=== PATIENT | male | born 1930 | race Caucasian/White ===

== ENCOUNTER 2018-03-26 16:48 | Inpatient (IN) | payer OTHER, MEDICARE ==
[~2018-03-26] VITALS: Ht 177.8 cm; Wt 74.6 kg
--- NOTE | ~2018-03-26 | HC ---
[facility] [place] [address] CONSULTATION Name: JANUARY PATEL Room #: 510-P [facility] IN M.R.#: [id number] Admission: 03/26/18 Attend Phys: Rodriguez Crow MD Discharge: 04/05/18 Date of : [birth year]/19/[birth year] Report #: [id number] THIS REPORT FOR: //name// CC: Rodriguez Dalton DATE OF SERVICE: 03/28/2018 NEUROBEHAVIORAL STATUS EXAM: ATTENDING PHYSICIAN: Rodriguez Crow MD. PARKING LINE PAINTER: Issac Cerrato, PhD. CLINICAL PRESENTATION: The patient is an 87-year-old male admitted to the [facility] rehab unit for comprehensive inpatient rehabilitation program to improve functional mobility, activities of daily living and self-care secondary to deficits from medical complexity and general debility. He has an assessment that includes a recent gastrointestinal bleed with hemodynamic changes, lower extremity edema with congestive heart failure, coronary artery disease, dilation of the ascending aorta, hypertension, diverticulitis and diverticulosis, dyslipidemia, decreased balance and gait instability. A complete description of his medical condition and history can be found in his medical records. Neuropsychological consultation was requested to provide assistance in the assessment of cognitive and emotional status and to provide recommendations and services. Prior to this most recent admission, he reports that he was living independently in his own home with his . He reports himself as independent with instrumental activities of daily living. However, social history includes him needing his to assist him of getting up out of a chair and navigating steps. The patient had 4 children. One child, son was killed. 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 The patient indicates that he had received a scholarship to the [employer] for football, basketball and baseball and then chose baseball to pursue further professional interests. There is no reported history of a mood disorder. 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 However, he has been sober for approximately 4-5 years. TECHNIQUES UTILIZED: Clinical interview, review of medical records, staff consultation and behavioral observation, mini mental status exam 2 standard version, clock drawing and verbal fluency assessment (letter and category). EXAMINATION FINDINGS: The patient was alert and cooperative with the assessment. He accurately described events surrounding his admission. There is [address] [address] CONSULTATION Name: JANUARY PATEL Room #: 510-P [facility] IN M.R.#: [id number] Admission: 03/26/18 Attend Phys: Rodriguez Crow MD Discharge: 04/05/18 Date of : 12/19/[birth year] Report #: [id number] no evidence of aphasia. His thoughts are logical and goal oriented. There is no evidence of thought disorder. He does not report auditory or visual hallucinations. The patient lacks insight into the severity of cognitive deficits. His performance on the MMSE 2 brief version is extremely low with a raw score of 9 of 16. He was 3 of 3 for initial registration, 5 of 5 for orientation to time, 1 of [address] and 0 of 3 for immediate recall of 3 items after a brief time delay and distraction. Performance was extremely low on the MMSE 2 standard version with a raw score of 20, T score 20, percentile rank of less than 1. He was 3 of 5 for serial sevens, 2 of 2 for naming, 1 of 1 for repetition, 3 of 3 for auditory comprehension. He could read and follow a single command. He also was able to write a sentence. However, visual spatial construction and the ability to reproduce geometric design was impaired. The patient was unable to accurately set the hands of a clock at a designated time on clock drawing. Letter fluency was in the average range with a raw score 22 and a T score of 47, which is at the 38th percentile. Category fluency was in the borderline range with a T score of 36 and percentile rank of 8. Overall, total fluency was a T score of 32, which is at the fourth percentile. Deficits are noted in immediate/short term memory, orientation to place and visual spatial construction. Deficits in verbal fluency suggest executive dysfunction. DIAGNOSTIC IMPRESSION: Neurocognitive disorder, unspecified, without behavior disorder -- extent to be determined, likely in the moderate range. Unspecified anxiety disorder. RECOMMENDATIONS: The patient is likely to require increased supervision and structure to maintain safety. The use of a memory/orientation notebook may be of benefit to assist in compensation of memory deficits. Anxiety is in regard to his recovery and ability to return to prior lifestyle suggest counseling to assist with adjustment. The patient also indicates frustration with the physical limitations given his past history of athletic activity. Assistance with planning and problem solving along with family conference including his may be of benefit to clarify expectations and assist in problem solving. [address] [address] CONSULTATION Name: JORGEJANUARY ELSY Room #: 510-P [facility] IN M.R.#: [id number] Admission: 03/26/18 Attend Phys: Rodriguez Crow MD Discharge: 04/05/18 Date of : 12/19/[birth year] Report #: [id number] Thank you very much for allowing me to provide the consultation on this patient. <ELECTRONICALLY SIGNED> By: Issac Cerrato, PhD 04/05/18 1850 1421 0413 Issac Cerrato, PhD /nt
--- NOTE | ~2018-03-26 | PLAN ---
[facility] [place] [address] REHAB UNIT PLAN OF CARE Name: JANUARY PATEL Room #: 510-P ADM IN M.R.#: [id number] Admission: 03/26/18 Attend Phys: Rodriguez Crow MD Discharge: Date of : 12/19/30 Report #: [id number] THIS REPORT FOR: //name// CC: Rodriguez Dalton DATE OF SERVICE: 03/29/2018 PROGRESS NOTE/OVERALL PLAN OF CARE SUBJECTIVE: The patient is seen back today in followup. He is in no distress. Last recorded temperature 97.7, pulse 71, respirations 20, blood pressure 134/69. He is alert. Lower extremities reveal further decrease in his lower extremity edema. He is now trace to 1+. He has bilateral venous stasis changes. Transfers are min assist with gait 150 feet on four-wheeled walker. He has been needing min assist. He is min assist to go up and down stairs. In occupational therapy, lower body dressing has been mod assist. ASSESSMENT: 1. Medical complexity with generalized debilitation. 2. Recent gastrointestinal bleed with hemodynamic changes in the ICU. 3. Lower extremity edema with congestive heart failure. Lower extremity edema is improving. 4. Coronary artery disease. 5. Dilatation of ascending aorta. 6. Hypertension. 7. Diverticulitis history. 8. Diverticulosis. 9. Dyslipidemia. 10. Decreased balance. 11. Gait instability. PLAN: The overall plan of care is based on the preadmission screen, post-admission physician evaluation, and information garnered from therapy assessments. 1. Estimated length of stay is probably at least 7-10 days and potentially longer as needed. 2. Medical prognosis is reasonably good. 3. Anticipated interventions include the interdisciplinary acute inpatient rehabilitation program with PT and OT, rehab nursing assisting regarding medication management, skin care prophylaxis, bowel and bladder issues and nursing education, case management involved as well as the interdisciplinary team and the clinical operations consultant physicians. 4. Anticipated functional outcomes would be for him to improve as far as his gait and balance, strength, endurance, safety, so that he can return back successfully to his home setting. [address] [address] REHAB UNIT PLAN OF CARE Name: JANUARY PATEL Room #: 510-P [facility] IN .R.#: [id number] Admission: 03/26/18 Attend Phys: Rodriguez Crow MD Discharge: Date of : 12/19/[birth year] Report #: [id number] 5. Discharge destination would be back home with his . 6. Expected therapy by discipline includes PT and OT 1-1/2 hours per day each 5 days a week throughout the duration of the acute inpatient rehabilitation stay. <ELECTRONICALLY SIGNED> By: Rodriguez Crow MD 04/02/18 1023 0926 0957 Rodriguez Crow MD /nt
--- NOTE | ~2018-03-26 | H ---
[facility] [place] [address] HISTORY AND PHYSICAL Name: JANUARY PATEL Room #: 510-P ADM IN M.R.#: [id number] Admission: 03/26/18 Attend Phys: Rodriguez Crow MD Discharge: Date of : 12/19/30 Report #: [id number] THIS REPORT FOR: //name// CC: Rodriguez Dalton DATE OF SERVICE: 03/26/2018 HISTORY AND PHYSICAL/POSTADMISSION PHYSICIAN EVALUATION HISTORY OF PRESENT ILLNESS: This is an 87-year-old white male with coronary artery disease, dilatation of the ascending aorta, hypertension and recent hemodynamically important lower GI bleeding. He had been admitted to [facility] and had aggressive lower GI bleeding. He received 3-4 units of packed cells and had a negative nuclear medicine bleeding scan and ultimately panendoscopy. Lower endoscopy demonstrated extensive diverticulosis. He had been in the Intensive Care Unit. He was discharged home 1 week ago, but had significant problems at home with lower extremity weakness, decreased functional abilities, lower extremity edema and significance concern with falls. He was evaluated by his eeler and noted the above with his coronary artery disease and congestive heart failure. Cardiology recommended evaluation for acute in-hospital inpatient rehabilitation with his significant functional decline and multiple comorbidities from a medical perspective. He has now been admitted for acute in-hospital inpatient rehabilitation. PAST MEDICAL HISTORY: As noted above. He has a history of diverticulosis, diverticulitis, dyslipidemia, gastrointestinal bleed and coronary artery disease. PAST SURGICAL HISTORY: No pertinent history. MEDICATIONS: Please see the full medication listing. This includes vitamins, herbals, and supplements. FAMILY HISTORY: Heart disease in his mother. ALLERGIES: PENICILLIN. HABITS: Former smoker, quit in 1950. No history of alcohol abuse. SOCIAL HISTORY: Lives with his , alie, 2 stories couple steps in. The main living areas on the ground floor with the bedrooms are upstairs with no bedroom is on the ground floor. Railing to go up stairs typically uses a cane, although he has a walker as well. needs assist him with getting up out of a chair and also going up and down the steps. [facility] [address] [place] [address] HISTORY AND PHYSICAL Name: JANUARY PATEL Room #: 510-P [facility] IN M.R.#: [id number] Admission: 03/26/18 Attend Phys: Rodriguez Crow MD Discharge: Date of : [birth year]/19/[birth year] Report #: [id number] REVIEW OF SYSTEMS: No recent weight gain, weight loss, vision loss. No hearing loss. No lower extremity cramps. No chronic cough. He has had the above concerns with the GI bleeding with negative GI workup. REVIEW OF SYSTEMS: No current joint pain. No numbness or tingling. No history of easy bruising or bleeding. PHYSICAL EXAMINATION: GENERAL: This is a pleasant 87-year-old white male who appears somewhat younger than stated age. He is alert, oriented of slender build. VITAL SIGNS: Temperature 36.9, pulse 60, respirations 20, blood pressure 127/65. HEENT: Facies appeared symmetric. CHEST: Sounded clear to auscultation. CARDIAC: Regular rate and rhythm, although heart tones are rather distant. ABDOMEN: Bowel sounds positive, nontender. GENITOURINARY AND RECTAL: Deferred. EXTREMITIES: He has functional range of motion of both upper extremities with strength grade 4-5-4-/5. DTRs are trace to 1. Lower extremities, no focal calf swelling. He does have venous stasis changes of bilateral distal lower extremities. He has 2+ to 1+ pitting edema pretibial. Lower extremity strength is probably a grade 4-/5. No obvious focal sensory decrease to simultaneous stimulation both upper and lower extremities. Does need assistance getting up from a chair quickly, moves slowly, has some decreased balance. ASSESSMENT: An 87-year-old white male with the following problem list: 1. Medical complex with generalized debilitation. 2. Recent gastrointestinal bleed with hemodynamic changes in ICU stay. 3. Lower extremity edema with congestive heart failure. 4. Coronary artery disease. 5. Dilatation of the ascending aorta. 6. Hypertension. 7. Diverticulitis history. 8. Diverticulosis. 9. Dyslipidemia. 10. Decreased balance. 11. Gait instability. PLAN: The patient is admitted for acute in-hospital inpatient rehabilitation. From a postadmission physician evaluation perspective, there are no relevant changes since the preadmission screening. Please see the above review of prior and current medical and functional conditions and comorbidities. Please see the previous and current functional status. As far as risk of complications, the patient has multiple medical comorbidities as noted above. Initial plan of care involves PT and OT, rehab nursing and the interdisciplinary team to work on maximizing his strength and independence, balance, fall prevention, ability to do ADLs and mobility so that he can return back to the home setting. His prognosis is reasonably good with estimated length of stay probably at least 7-10 days, pending progress. [facility] [address] [place] [address] HISTORY AND PHYSICAL Name: JANUARY PATEL Room #: 510-P ADM IN M.R.#: [id number] Admission: 03/26/18 Attend Phys: Rodriguez Crow MD Discharge: Date of : 12/19/[birth year] Report #: [id number] The patient meets diagnostic criteria for an acute in-hospital inpatient rehabilitation stay. He meets medical necessity criteria. He was failing at home, recently hospitalized less than a week ago with significant difficulty at home. Lower extremity edema and definite concern as per his eeler. He does have the tolerance for therapies and has appropriate discharge goals back to the home setting. <ELECTRONICALLY SIGNED> By: Rodriguez Crow MD 04/02/18 1023 0701 0720 Rodriguez Crow MD /nt
[~2018-03-26 16:48] MED LIST: ASPIR 8181 MG PO; ASPIRIN EC81 M1 PO; CELEBREX 200 M200 M1 PO; DEXILANT60 MG PO; DIOVAN160 MG PO; FLOMAX0.4 MG PO; FUROSEMIDE 20 M20 M1 PO; GLUCOSAMINE1000 MG PO; NEURONTIN 300300 M1 PO; PLAVIX 75 MG TA75 MG PO; POTASSIUM20 PO; TOLTERODINE TART4 MG PO; TOPROL XL50 MG PO; TRAMADOL 50 MG50 MG PO
[2018-03-26] MEDS ORDERED: DITROPAN XL15 MG PO (17:00)
[2018-03-26] MEDS ORDERED: PROTONIX40 M1 PO (17:01)
[2018-03-26] MEDS ORDERED: DEMADEX20 MG PO (17:02)
[2018-03-26] MEDS ORDERED: KLOR-CON 1010 MEQ PO (17:03)
[2018-03-26 20:39] VITALS: BP 127/65
[2018-03-27 04:06] LABS: HEMATOCRIT 31.1 % (42.0-52.0); HEMOGLOBIN 10.5 gm/dL (14.0-18.0); MCH 31.7 pg (26.0-34.0); MCHC 33.7 g/dL (28.0-37.0); RBC 3.3 mil/uL (4.50-6.00); RDW 14.6 % (10.5-14.5)
[2018-03-27 04:19] LABS: CALCIUM 8.6 mg/dL (8.5-10.1); CREATININE 1.1 mg/dL (0.7-1.3); POTASSIUM 3.5 mmol/L (3.5-5.1)
[2018-03-27 08:30] VITALS: BP 125/64
[2018-03-27 21:15] VITALS: BP 137/60
[2018-03-28 21:22] VITALS: BP 134/69
[2018-03-29 07:20] VITALS: BP 111/63
[2018-03-29 19:40] VITALS: BP 127/77
[2018-03-30 03:47] LABS: CALCIUM 8.6 mg/dL (8.5-10.1); CREATININE 1.1 mg/dL (0.7-1.3); POTASSIUM 3.9 mmol/L (3.5-5.1)
[2018-03-30 04:01] LABS: HEMATOCRIT 30.8 % (42.0-52.0); HEMOGLOBIN 10.5 gm/dL (14.0-18.0); MCH 31.5 pg (26.0-34.0); MCHC 34.1 g/dL (28.0-37.0); MCV 92.4 fL (80.0-100.0); RBC 3.33 mil/uL (4.50-6.00); RDW 14.4 % (10.5-14.5); WBC 4.8 thou/uL (4.0-11.0)
[2018-03-30 08:30] VITALS: BP 112/69
[2018-03-31 08:30] VITALS: BP 114/68
[2018-03-31 19:40] VITALS: BP 118/69
[2018-04-01 07:40] VITALS: BP 108/53
[2018-04-01 21:43] VITALS: BP 108/64
[2018-04-02 08:40] VITALS: BP 112/52
[2018-04-02 21:16] VITALS: BP 104/40
[2018-04-03 07:50] VITALS: BP 118/53
[2018-04-03 19:07] VITALS: BP 116/57
[2018-04-04 07:40] VITALS: BP 130/63
[2018-04-04 07:54] VITALS: BP 130/63
[2018-04-04 19:11] VITALS: BP 120/54
[2018-04-05 07:14] VITALS: BP 131/64
[2018-04-05 10:24] VITALS: BP 131/64
[2018-04-05] MEDS ORDERED: COLACE100 MG PO (11:18)
[2018-04-05] MEDS ORDERED: PROTONIX40 M1 PO (11:18)
[2018-04-05] MEDS ORDERED: BAYER CHEWABLE81 MG PO (11:18)
[2018-04-05] MEDS ORDERED: FLOMAX0.4 MG PO (11:18)
== END 2018-04-05 15:48 | disposition home health service (06) | DRG 948 ==
LOC: ENTRNSPT 04-05 15:33 → EDTRNSPTSTS 04-05 15:38
PROVIDERS: Hospitalist; Internal Medicine; Physical Medicine & Rehabilitation
DX: R53.81 Other malaise (principal); I50.32 Chronic diastolic (congestive) heart failure; I25.10 Atherosclerotic heart disease of native coronary artery without angina pectoris; I77.810 Thoracic aortic ectasia; I11.0 Hypertensive heart disease with heart failure; N40.0 Benign prostatic hyperplasia without lower urinary tract symptoms; D50.9 Iron deficiency anemia, unspecified; E78.5 Hyperlipidemia, unspecified; R26.9 Unspecified abnormalities of gait and mobility; R41.9 Unspecified symptoms and signs involving cognitive functions and awareness; F41.9 Anxiety disorder, unspecified; M17.11 Unilateral primary osteoarthritis, right knee; G62.9 Polyneuropathy, unspecified; M48.061 Spinal stenosis, lumbar region without neurogenic claudication; Z66 Do not resuscitate; K21.9 Gastro-esophageal reflux disease without esophagitis; M54.16 Radiculopathy, lumbar region; I25.2 Old myocardial infarction; Z95.5 Presence of coronary angioplasty implant and graft; Z87.891 Personal history of nicotine dependence; Z79.899 Other long term (current) drug therapy; Z88.0 Allergy status to penicillin; Z82.49 Family history of ischemic heart disease and other diseases of the circulatory system; Z87.19 Personal history of other diseases of the digestive system
CPT/HCPCS: 10112